=== PATIENT | female | born 1955 | race Caucasian/White ===

== ENCOUNTER 2020-09-29 20:08 | Inpatient (IN) | payer BC ==
[2020-09-29] MEDS ORDERED: Acetaminophen 325 MG TAB PO PRN (20:27)
[2020-09-29] MEDS ORDERED: Ondansetron ODT 4 MG TAB PO PRN (20:27)
[2020-09-29 20:46] VITALS: BMI 41.9
[2020-09-29] MEDS ORDERED: medroxyPROGESTERone Acetate 5 MG TAB PO SCH (21:00)
[2020-09-29 21:37] LABS: #Monocytes 0.8 10x3/uL (0.0-1.1); %Basophils 0.3 % (0.0-2.0); %Eosinophils 0.2 % (0.0-6.0); %Lymphocytes 30.6 % (18.0-47.0); %Monocytes 9.4 % (0.0-10.0); %Neutrophils 57.4 % (40.0-75.0); Hemoglobin 7.6 g/dL (12.0-15.5); Mean Corpuscular HGB CONC 32.1 g/dL (32.0-36.0); Mean Corpuscular Hemoglobin 27.8 pg (27.0-33.0); Mean Corpuscular Volume 86.8 fl (81.6-98.3); Mean Platelet Volume 10.3 fl (7.4-10.4); Platelet Count 283 10x3/uL (150-450); RBC Distribution Width 14.8 % (11.5-14.5); Red Blood Cell (RBC) Count 2.73 10x6/uL (3.90-5.03); White Blood Cell (WBC) Count 8.7 10x3/uL (3.5-10.5)
[2020-09-30 05:19] LABS: #Neutrophils 4.7 10x3/uL (1.5-8.4); %Basophils 0.4 % (0.0-2.0); %Eosinophils 0.4 % (0.0-6.0); %Lymphocytes 35.9 % (18.0-47.0); %Monocytes 10.9 % (0.0-10.0); %Neutrophils 49.9 % (40.0-75.0); Hemoglobin 8.3 g/dL (12.0-15.5); Mean Corpuscular HGB CONC 31.9 g/dL (32.0-36.0); Mean Corpuscular Hemoglobin 27.4 pg (27.0-33.0); Mean Corpuscular Volume 85.8 fl (81.6-98.3); Mean Platelet Volume 10.3 fl (7.4-10.4); Platelet Count 256 10x3/uL (150-450); Red Blood Cell (RBC) Count 3.03 10x6/uL (3.90-5.03); White Blood Cell (WBC) Count 9.4 10x3/uL (3.5-10.5)
[2020-09-30 05:39] LABS: Anion Gap 12 mmol/L (10-20); BUN (Urea Nitrogen) 11 mg/dL (9.8-20.1); Calc. Creatinine Clearance 130 mL/min (70-130); Calcium 8.4 mg/dL (7.8-10.44); Carbon Dioxide 19 mmol/L (23-31); Chloride 108 mmol/L (98-107); Glucose 127 mg/dL (80-115); Magnesium 2.1 mg/dL (1.6-2.6); Potassium 4.2 mmol/L (3.5-5.1); Sodium 135 mmol/L (136-145)
[2020-09-30] MEDS: Ondansetron PF 4 MG/2 ML Vial IVP PRN ×3 (09:55→21:16)
[2020-09-30] MEDS: medroxyPROGESTERone Acetate 5 MG TAB PO SCH ×2 (10:26→21:17)
[2020-09-30 16:25] LABS: Hemoglobin 8.6 g/dL (12.0-15.5); Mean Corpuscular HGB CONC 33.1 g/dL (32.0-36.0); Mean Corpuscular Volume 84.7 fl (81.6-98.3); Mean Platelet Volume 10.2 fl (7.4-10.4); Platelet Count 243 10x3/uL (150-450); RBC Distribution Width 15.5 % (11.5-14.5); Red Blood Cell (RBC) Count 3.07 10x6/uL (3.90-5.03); White Blood Cell (WBC) Count 11.4 10x3/uL (3.5-10.5)
[2020-09-30 17:55] LABS: Hemoglobin 9.1 g/dL (12.0-15.5)
[2020-10-01 05:24] LABS: Anion Gap 13 mmol/L (10-20); BUN (Urea Nitrogen) 9 mg/dL (9.8-20.1); Calc. Creatinine Clearance 111 mL/min (70-130); Calcium 8.2 mg/dL (7.8-10.44); Carbon Dioxide 19 mmol/L (23-31); Chloride 106 mmol/L (98-107); Glucose 134 mg/dL (80-115); Potassium 4.1 mmol/L (3.5-5.1); Sodium 134 mmol/L (136-145)
[2020-10-01 05:40] LABS: #Basophils 0.1 10x3/uL (0.0-0.2); #Eosinphils 0.1 10x3/uL (0.0-0.5); #Monocytes 1.1 10x3/uL (0.0-1.1); %Basophils 0.5 % (0.0-2.0); %Eosinophils 0.8 % (0.0-6.0); %Lymphocytes 28.7 % (18.0-47.0); %Monocytes 10.1 % (0.0-10.0); %Neutrophils 55.7 % (40.0-75.0); Hemoglobin 7.6 g/dL (12.0-15.5); Mean Corpuscular HGB CONC 32.5 g/dL (32.0-36.0); Mean Corpuscular Hemoglobin 27.9 pg (27.0-33.0); Mean Platelet Volume 9.7 fl (7.4-10.4); Platelet Count 258 10x3/uL (150-450); Red Blood Cell (RBC) Count 2.72 10x6/uL (3.90-5.03); White Blood Cell (WBC) Count 10.8 10x3/uL (3.5-10.5)
[2020-10-01 08:20] LABS: SARS-CoV-2 NAA Rapid Test Not Detected (NotDetected)
[2020-10-01] MEDS ORDERED: PROPOFOL 20 ML ONE (09:49)
[2020-10-01] MEDS ORDERED: Lidocaine 1% PF 5 ML VIAL ONE (09:50)
[2020-10-01] MEDS ORDERED: Fentanyl 100 MCG/2 ML VIAL ONE (09:50)
[2020-10-01] MEDS ORDERED: Scopolamine 1.5 mg/72 hour Patch ONE (09:57)
[2020-10-01] MEDS: medroxyPROGESTERone Acetate 5 MG TAB PO SCH ×2 (10:03→21:34)
[2020-10-01] MEDS ORDERED: Famotidine/PF 20 mg/2ml Vial ONE (10:04)
[2020-10-01] MEDS ORDERED: Phenylephrine 40 MG/NS 250 ML 0 ML ONE (10:09)
[2020-10-01] MEDS ORDERED: Rocuronium Bromide 10 MG/ML (10ML VIAL) ONE (10:11)
[2020-10-01] MEDS ORDERED: Succinylcholine 200 MG/10 ml SYRINGE FS ONE (10:11)
[2020-10-01] MEDS ORDERED: PHENYLEPHRINE-NS 100 MCG/ML 10 ML SYRINGE ONE (10:37)
[2020-10-01] MEDS: Ondansetron PF 4 MG/2 ML Vial IVP PRN (21:34)
[2020-10-02 06:14] LABS: Anion Gap 13 mmol/L (10-20); BUN (Urea Nitrogen) 9 mg/dL (9.8-20.1); Calc. Creatinine Clearance 104 mL/min (70-130); Calcium 8.2 mg/dL (7.8-10.44); Carbon Dioxide 19 mmol/L (23-31); Chloride 106 mmol/L (98-107); Glucose 122 mg/dL (80-115); Potassium 4.3 mmol/L (3.5-5.1); Sodium 134 mmol/L (136-145)
[2020-10-02] MEDS: medroxyPROGESTERone Acetate 5 MG TAB PO SCH ×2 (08:58→20:44)
[2020-10-02] MEDS: Ondansetron PF 4 MG/2 ML Vial IVP PRN (08:59)
[2020-10-02 09:05] LABS: #Neutrophils 6.4 10x3/uL (1.5-8.4); %Basophils 0.4 % (0.0-2.0); %Eosinophils 0.1 % (0.0-6.0); %Monocytes 9.2 % (0.0-10.0); Mean Corpuscular HGB CONC 32.4 g/dL (32.0-36.0); Mean Corpuscular Hemoglobin 28.6 pg (27.0-33.0); Mean Corpuscular Volume 88.2 fl (81.6-98.3); Mean Platelet Volume 9.6 fl (7.4-10.4); Platelet Count 248 10x3/uL (150-450); RBC Distribution Width 17.3 % (11.5-14.5); Red Blood Cell (RBC) Count 2.45 10x6/uL (3.90-5.03); White Blood Cell (WBC) Count 10.8 10x3/uL (3.5-10.5)
[2020-10-02 10:25] LABS: Hemoglobin 7.1 g/dL (12.0-15.5)
[2020-10-02 19:32] LABS: Hemoglobin 7.6 g/dL (12.0-15.5)
[2020-10-03 04:33] LABS: #Monocytes 0.6 10x3/uL (0.0-1.1); #Neutrophils 3.3 10x3/uL (1.5-8.4); %Basophils 0.6 % (0.0-2.0); %Eosinophils 0.6 % (0.0-6.0); %Neutrophils 49.4 % (40.0-75.0); Hemoglobin 7.6 g/dL (12.0-15.5); Mean Corpuscular HGB CONC 32.3 g/dL (32.0-36.0); Mean Corpuscular Volume 89.7 fl (81.6-98.3); Mean Platelet Volume 9.5 fl (7.4-10.4); Platelet Count 201 10x3/uL (150-450); RBC Distribution Width 18.3 % (11.5-14.5); Red Blood Cell (RBC) Count 2.62 10x6/uL (3.90-5.03); White Blood Cell (WBC) Count 6.8 10x3/uL (3.5-10.5)
[2020-10-03] MEDS ORDERED: Enoxaparin Sodium 80 MG/0.8 ML SYRINGE SC SCH (09:15)
[2020-10-03] MEDS: medroxyPROGESTERone Acetate 5 MG TAB PO SCH (09:41)
[2020-10-03] MEDS: Enoxaparin Sodium 80 MG/0.8 ML SYRINGE SC SCH (20:57)
[2020-10-04 05:40] LABS: #Eosinphils 0.1 10x3/uL (0.0-0.5); #Monocytes 0.3 10x3/uL (0.0-1.1); #Neutrophils 1.9 10x3/uL (1.5-8.4); %Basophils 0.5 % (0.0-2.0); %Eosinophils 1.3 % (0.0-6.0); %Lymphocytes 37.4 % (18.0-47.0); %Monocytes 8.1 % (0.0-10.0); %Neutrophils 49.3 % (40.0-75.0); Hemoglobin 7.4 g/dL (12.0-15.5); Mean Corpuscular HGB CONC 31.5 g/dL (32.0-36.0); Mean Corpuscular Hemoglobin 28.8 pg (27.0-33.0); Mean Corpuscular Volume 91.4 fl (81.6-98.3); Mean Platelet Volume 9.4 fl (7.4-10.4); Platelet Count 202 10x3/uL (150-450); RBC Distribution Width 19.2 % (11.5-14.5); Red Blood Cell (RBC) Count 2.57 10x6/uL (3.90-5.03); White Blood Cell (WBC) Count 3.9 10x3/uL (3.5-10.5)
[2020-10-04 05:59] LABS: Anion Gap 11 mmol/L (10-20); BUN (Urea Nitrogen) 7 mg/dL (9.8-20.1); Calc. Creatinine Clearance 121 mL/min (70-130); Carbon Dioxide 23 mmol/L (23-31); Chloride 109 mmol/L (98-107); Glucose 136 mg/dL (80-115); Sodium 139 mmol/L (136-145)
[2020-10-04] MEDS: Enoxaparin Sodium 80 MG/0.8 ML SYRINGE SC SCH (08:47)
[2020-10-04] MEDS: medroxyPROGESTERone Acetate 5 MG TAB PO SCH (08:48)
[2020-10-04] MEDS: Apixaban 5 MG TAB PO SCH ×2 (09:08→20:28)
[2020-10-05 04:38] LABS: #Eosinphils 0.1 10x3/uL (0.0-0.5); #Monocytes 0.3 10x3/uL (0.0-1.1); #Neutrophils 1.7 10x3/uL (1.5-8.4); %Basophils 0.5 % (0.0-2.0); %Eosinophils 1.8 % (0.0-6.0); %Lymphocytes 46.1 % (18.0-47.0); %Monocytes 7.3 % (0.0-10.0); Hemoglobin 7.6 g/dL (12.0-15.5); Mean Corpuscular HGB CONC 31.1 g/dL (32.0-36.0); Mean Corpuscular Hemoglobin 28.5 pg (27.0-33.0); Mean Corpuscular Volume 91.4 fl (81.6-98.3); Mean Platelet Volume 9.5 fl (7.4-10.4); Platelet Count 203 10x3/uL (150-450); RBC Distribution Width 18.5 % (11.5-14.5); Red Blood Cell (RBC) Count 2.67 10x6/uL (3.90-5.03); White Blood Cell (WBC) Count 3.9 10x3/uL (3.5-10.5)
[2020-10-05] MEDS: Apixaban 5 MG TAB PO SCH (10:08)
[2020-10-05] MEDS: medroxyPROGESTERone Acetate 5 MG TAB PO SCH (10:08)
[2020-10-05 12:40] VITALS: BP 119/82; TEMP 97.5
== END 2020-10-05 13:29 | disposition home or self-care (01) | DRG 744 ==
LOC: CSHTELE 20:08 → OBSVTOIN 20:27
PROVIDERS: ADMIT Internal Medicine; ATTEND Internal Medicine
PROC: 30233N1 Transfusion of Nonautologous Red Blood Cells into Peripheral Vein, Percutaneous Approach (ICD-10-PCS; principal; 2020-09-30)
PROC: 0UDB7ZX Extraction of Endometrium, Via Natural or Artificial Opening, Diagnostic (ICD-10-PCS; 2020-10-01)
DX: N93.8 Other specified abnormal uterine and vaginal bleeding (principal); D62 Acute posthemorrhagic anemia; Z68.41 Body mass index [BMI] 40.0-44.9, adult; Z20.822 Contact with and (suspected) exposure to COVID-19; Z86.711 Personal history of pulmonary embolism; N92.0 Excessive and frequent menstruation with regular cycle; Z93.3 Colostomy status; E66.9 Obesity, unspecified; D64.9 Anemia, unspecified; Z88.1 Allergy status to other antibiotic agents; Z79.890 Hormone replacement therapy
CPT/HCPCS: 36415; 36430; 80048; 82274; 83735; 85025; 86850; 86900; 86901; 88305; J1650; J2405; J2704; J3010; P9016; Q0162; S0028; U0002